=== PATIENT | male | born 1955 | race Caucasian/White ===

== ENCOUNTER 2021-08-12 10:37 | Observation (INO) | payer MEDICARE, OTHER, SELFPAY ==
[~2021-08-12] VITALS: Ht 167.6 cm; Wt 72.6 kg
[2021-08-12 10:46] VITALS: BP 137/87
--- NOTE | 2021-08-12 10:55 | NUR ---
Patient ambulated to bed 2.
--- NOTE | 2021-08-12 11:12 | NUR ---
Dr. Ordaz is evaluating patient at bedside
--- NOTE | 2021-08-12 11:26 | NUR ---
RAD at bedside
--- NOTE | 2021-08-12 11:30 | NUR ---
66 y/o M BIB self from home c/o chest pain, RUQ pain with associated N/V/D x 2 days. Patient states acute onset of chest pain at 0530 this morning. Pt states chest pain 8/10, sharp/constant, non-radiating pain. States vomiting x 2 epsiodes no blood in emesis. Pt denies taking any medications prior to arrival. Cap refill immediate. Skin warm/pink/dry. Pt placed into a gown and cardiac nurse specialist showing HR 49, SpO2 100% on room air; pulse strong/regular at the radial. Bed locked in lowest position, side rails x 1, call light in reach. PMH: HLD, HTN, DM Sx: "abdomen sugery a long time ago; unable to recall"
[2021-08-12 11:40] LABS: BASOPHILS % (AUTO) 0.4 % (0.0-2.0); EOSINOPHILS # (AUTO) 0.1 K/uL (0-0.4); EOSINOPHILS % (AUTO) 0.8 % (0.0-4.0); HEMATOCRIT 44.6 % (36-52); HEMOGLOBIN 15.1 g/dL (12.0-18.0); LYMPHOCYTES # (AUTO) 1.7 K/uL (2.0-11.5); LYMPHOCYTES % (AUTO) 22.8 % (20.5-51.1); MEAN CORPUSCULAR HEMOGLOBIN 30 pg (27-31); MEAN CORPUSCULAR HGB CONC 34 g/dL (33-37); MEAN CORPUSCULAR VOLUME 88.2 fL (80-94); MONOCYTES # (AUTO) 0.7 K/uL (0.8-1.0); MONOCYTES % (AUTO) 8.8 % (1.7-9.3); NEUTROPHILS % (AUTO) 67.2 % (42.2-75.2); PLATELET COUNT (AUTO) 148 K/uL (140-450); RED BLOOD CELL COUNT(AUTO) 5.06 MIL/uL (4.20-6.10); RED CELL DISTRIBUTION WIDTH 13.5 % (11.6-13.7); WHITE BLOOD COUNT (AUTO) 7.5 K/uL (4.8-10.8)
[2021-08-12 11:54] LABS: ANION GAP 16.5 (8-16); CREATININE 0.9 mg/dL (0.6-1.3); POTASSIUM 3.5 mmol/L (3.5-5.1)
[2021-08-12 12:04] LABS: ALBUMIN 3.6 g/dL (3.4-5.0); TOTAL BILIRUBIN 1.6 mg/dL (0.0-1.0)
[2021-08-12] MEDS ORDERED: ASPIRIN 325 MG TAB PO ONE (12:30)
--- NOTE | 2021-08-12 12:53 | NUR ---
Per Dr. Rangel, repeat troponin levels at 1900.
--- NOTE | 2021-08-12 13:08 | NUR ---
Patient ambulated to restroom with steady/even gait for bowel movement
--- NOTE | 2021-08-12 13:10 | NUR ---
RECEIVED PT FROM ER PATIENT ALERT ORIENTED X4, CALM, NO C/O PAIN AT THIS TIME, BODY ASSESSMENT DONE, NOTED BROWNISH DISCOLORATION ON BOTH EXTREMITIES, ABDOMEN SOFT NON DISTENDED, ON ROOM AIR, ORIENT TO THE ROOM, KEEP CALL LIGHT WITHIN EASY REACH, Addendum: 08/12/21 at 1736 by Reny Colunga RN PER PT HE HAS HISTORY OF ABDOMINAL SURGERY 20 YRS AGO BUT UNABLE TO SAY WHAT KIND, HISTORY OF HTN AND DM, CALL PLACE TO MD TO ASK FOR ACCUCHECK CHECK
[2021-08-12] MEDS ORDERED: ONDANSETRON 4 MG/2 ML VIAL IM/IVP PRN (14:55)
[2021-08-12] MEDS ORDERED: HYDROcodone/APAP 7.5/325 MG 1 TAB PO PRN (14:55)
[2021-08-12] MEDS ORDERED: ACETAMINOPHEN 325 MG TAB PO PRN (14:55)
[2021-08-12] MEDS ORDERED: guaiFENesin DM 200/20 MG-10 ML 10 ML UDC PO PRN (14:55)
[2021-08-12] MEDS ORDERED: POTASSIUM CHLORIDE 10 MEQ TABER PO PRN (14:55)
[2021-08-12] MEDS ORDERED: ZOLPIDEM 5 MG TAB PO PRN (14:55)
[2021-08-12] MEDS ORDERED: NITROGLYCERIN 0.4 MG TAB SL PRN (14:55)
[2021-08-12] MEDS: NACL 0.9% 1,000 ML IV SCH (14:55)
[2021-08-12] MEDS ORDERED: DOCUSATE SODIUM 100 MG GELCAP PO PRN (14:55)
--- NOTE | 2021-08-12 14:57 | NUR ---
Report given to SAPNA Castro.
--- NOTE | 2021-08-12 15:03 | NUR ---
Transport delayed d/t RT at bedside for EKG
[2021-08-12 15:17] LABS: PROTHROMBIN TIME 10.3 secs (10.8-13.4)
--- NOTE | 2021-08-12 15:25 | NUR ---
Patient will be admitted to care of Dr. Rangel. Admited to Telemetry. Will go to [id number]. Belongings list completed. Report to SAPNA Castro.
[2021-08-12 15:33] LABS: CHOL/HDL RATIO 3.1 (1-4.5); FREE T4 (FREE THYROXINE) 0.88 ng/dL (0.76-1.46); MAGNESIUM 2.2 mg/dL (1.8-2.4); PHOSPHORUS 2.7 mg/dL (2.5-4.9); THYROID STIMULATING HORMONE 3.88 uIU/mL (0.34-3.74)
[2021-08-12 15:44] VITALS: BP 163/70
--- NOTE | 2021-08-12 15:48 | NUR ---
RECEIVED REPORT FROM SUPERVISOR [employer] NURSE IN STABLE CONDITION. ALL SAFETY MEASURES IN PLACE. PT IS STABLE
[2021-08-12] MEDS: lisinopriL 10 MG TAB PO SCH (16:35)
[2021-08-12] MEDS ORDERED: ATORVASTATIN 20 MG TAB PO SCH (17:00)
--- NOTE | 2021-08-12 17:20 | NUR ---
PATIENT WENT TO THE BATHROOM, PATIENT ALERT, AWAKE ORIENTED, NO SOB NOTED.
--- NOTE | 2021-08-12 17:38 | NUR ---
RECEIVED REPORT FROM SAPNA HERNANDEZ FOR CONTINUITY OF CARE, PT IS STABLE IN BED
[2021-08-12] MEDS ORDERED: INSULIN LISPRO SLIDING SCALE 100 UNITS/ML VIAL SUBQ PRN (17:40)
[2021-08-12] MEDS ORDERED: DEXTROSE 50% 50 ML SYR IVP PRN (17:40)
--- NOTE | 2021-08-12 18:17 | NUR ---
RADIOLOGY CALLED ASKING ABOUT PTS CONTRAST. INFORMED THEM OF CONSENT BEING SIGNED AND IV LOCATION AND GAUGE. PT REPORTS NOT EATING OR DRINKING SINCE 08/11/21. ALL QUESTIONS ANSWERED. RADIOLOGY STATED THEY WILL BE IN AT [facility] 1845
--- NOTE | 2021-08-12 19:22 | NUR ---
PT HAS BEEN ENDORSED TO BRANCH SERVICE ASSOCIATE NURSE IN STABLE CONDITION, POC DISCUSSED.
--- NOTE | 2021-08-12 19:25 | NUR ---
RECEIVED REPORT FROM EFRAIN ALEJO FOR CONTINUITY OF CARE. PT SITTING UP AAOX4. NO APPARENT S/S OF ACUTE DISTRESS. BREATHING EVEN AND UNLABORED ON RA WITH O2 SAT OF 98%. NO C/O CP, SOB OR PAIN. L AC 18G INTACT/PATENT WITH NS@60ML/HR. POC AND WHITE COMMUNICATION BOARD UPDATED. BED IN LOW/LOCKED POSITION. CALL LIGHT WITHIN REACH. PT ENCOURAGED TO CALL FOR ANY NEEDS/ASSISTANCE. WILL CONTINUE TO MONITOR.
[2021-08-12 20:00] VITALS: BP 137/80
[2021-08-12] MEDS: BLOOD GLUCOSE MONITORING 1 DEV DEV FS SCH (20:22)
[2021-08-12] MEDS ORDERED: METOPROLOL 25 MG TAB PO SCH (21:00)
[2021-08-13] VITALS: BP 141/79
[2021-08-13] MEDS ORDERED: MORPHINE SULFATE 2 MG/ML SYR ONE (01:48)
--- NOTE | 2021-08-13 01:48 | NUR ---
MORPHINE ORDER INPUT IN ERROR BY OTHER RN. ORDER MEANT FOR DIFFERENT PATIENT. MORPHINE NOT GIVEN.
[2021-08-13 04:00] VITALS: BP 117/73
[2021-08-13 05:40] LABS: BARBITURATE, URINE NEGATIVE ng/ml (NEG <=200); BENZODIAZEPINE, URINE NEGATIVE ng/mL (NEG <=200); CANNABINOID, URINE NEGATIVE ng/mL (NEG <=50); COCAINE, URINE NEGATIVE ng/mL (NEG <=300); OPIATE, URINE NEGATIVE ng/mL (NEG <=2000); PHENCYCLIDINE SCREEN,URINE NEGATIVE ng/mL (NEG <=25)
[2021-08-13 05:43] LABS: APPEARANCE,URINE CLEAR (CLEAR); BILIRUBIN,URINE NEGATIVE (NEGATIVE); BLOOD, URINE TRACE-I (NEGATIVE); COLOR,URINE YELLOW (YELLOW); LEUKOCYTE ESTERASE ,URINE NEGATIVE (NEGATIVE); NITRITE, URINE NEGATIVE (NEGATIVE); PH,URINE 6.5 (5.0-9.0); UGLUCOSE NEGATIVE (NEGATIVE)
[2021-08-13 05:51] LABS: RBC,URINE 0-5 /HPF (0-5); WBC,URINE 0-5 /HPF (0-5)
[2021-08-13 06:22] LABS: BASOPHILS % (AUTO) 0.2 % (0.0-2.0); HEMATOCRIT 44.4 % (36-52); HEMOGLOBIN 15.1 g/dL (12.0-18.0); LYMPHOCYTES # (AUTO) 1.2 K/uL (2.0-11.5); LYMPHOCYTES % (AUTO) 9.5 % (20.5-51.1); MEAN CORPUSCULAR HEMOGLOBIN 30 pg (27-31); MEAN CORPUSCULAR HGB CONC 34 g/dL (33-37); MEAN CORPUSCULAR VOLUME 86.9 fL (80-94); MONOCYTES # (AUTO) 1.4 K/uL (0.8-1.0); MONOCYTES % (AUTO) 11.4 % (1.7-9.3); NEUTROPHILS # (AUTO) 9.8 K/uL (1.8-7.7); NEUTROPHILS % (AUTO) 78.9 % (42.2-75.2); PLATELET COUNT (AUTO) 146 K/uL (140-450); RED BLOOD CELL COUNT(AUTO) 5.11 MIL/uL (4.20-6.10); RED CELL DISTRIBUTION WIDTH 13.4 % (11.6-13.7); WHITE BLOOD COUNT (AUTO) 12.5 K/uL (4.8-10.8)
[2021-08-13 06:39] LABS: ANION GAP 14.2 (8-16); CARBON DIOXIDE 22.6 mmol/L (21-32); CREATININE 0.8 mg/dL (0.6-1.3); POTASSIUM 3.8 mmol/L (3.5-5.1)
--- NOTE | 2021-08-13 07:19 | NUR ---
REPORT GIVEN TO NIRAV ALEJO FOR CONTINUITY OF CARE. NO APPARENT S/S OF ACUTE DISTRESS. BREATHING EVEN AND UNLABORED. BED IN LOW/LOCKED POSITION. CALL LIGHT WITHIN REACH. ALL NEEDS MET AT THIS TIME.
--- NOTE | 2021-08-13 07:20 | NUR ---
RECEIVED REPORT FROM KICK PRESS SETTER RN FOR CONTINUITY OF CARE. PT SITTING UP AAOX4. NO APPARENT S/S OF ACUTE DISTRESS. BREATHING EVEN AND UNLABORED ON RA WITH O2 SAT OF 98%. NO C/O CP, SOB OR PAIN. L AC 18G INTACT/PATENT WITH NS@60ML/HR. POC AND WHITE COMMUNICATION BOARD UPDATED. BED IN LOW/LOCKED POSITION. CALL LIGHT WITHIN REACH. PT ENCOURAGED TO CALL FOR ANY NEEDS/ASSISTANCE.
[2021-08-13 08:00] VITALS: BP 113/63
[2021-08-13] MEDS: BLOOD GLUCOSE MONITORING 1 DEV DEV FS SCH ×2 (08:26→12:05)
[2021-08-13] MEDS: NACL 0.9% 1,000 ML IV SCH (08:26)
[2021-08-13] MEDS: lisinopriL 10 MG TAB PO SCH (08:34)
[2021-08-13] MEDS ORDERED: ECOTRIN 81 MG TABEC PO SCH (09:00)
[2021-08-13] MEDS ORDERED: lisinopriL 5 MG TAB PO SCH (09:00)
[2021-08-13] MEDS ORDERED: PANTOPRAZOLE 40 MG TABEC PO SCH (09:00)
--- NOTE | 2021-08-13 09:30 | NUR ---
PATIENT IN BED NO COMPLAINS, NO SOD NOTED, ATE BREAKFAST, MORNING MEDICATION GOT ADMINISTRATED TOLERATED WELL, ALL SAFETY MEASURES ON PLACE CALLS LIGHT WITHIN REACH
--- NOTE | 2021-08-13 09:57 | NUR ---
PATIENT HAS BEEN SCREENED AND CATEGORIZED LOW NUTRITION RISK. PATIENT WILL BE SEEN WITHIN 7 DAYS OF ADMISSION. 08/19/21 REVIEWED BY KRISTIE MG RD
[2021-08-13 10:06] LABS: T4 (THYROXINE) 5.5 ug/dL (4.5-12.0)
[2021-08-13] MEDS ORDERED: LISI-486 PO (11:11)
[2021-08-13] MEDS ORDERED: ATOR10TA PO (11:11)
[2021-08-13] MEDS ORDERED: ASPI-1822 PO (11:11)
--- NOTE | 2021-08-13 11:30 | NUR ---
PATIENT IN BED NO COMPLAINS, NO SOD NOTED, PATIENT WILL BE DISCHARGE TODAY. ALL SAFETY MEASURES ON PLACE CALLS LIGHT WITHIN REACH
[2021-08-13 12:00] VITALS: BP 116/67
--- NOTE | 2021-08-13 12:38 | NUR ---
DC PLANNING: THE PATIENT ADMITTED THROUGH THE ER WITH C/O CHEST PAIN X 1 DAY, HAS H/O HTN AND DM WITHOUT MEDICAL MANAGEMENT. ACS W/U WITH SERIAL TROPONINS AND CARDIOLOGY CONSULT, SC RULED OUT WELL CARDIAC ISCHEMIA. NO FURTHER IN PATIENT W/U NEEDED, PATIENT TO F/U ON CARDIAC STRESS TESTING AN OUTPATIENT. THE PATIENT WILL DISCHARGE TO HOME TODAY, CM WILL FOLLOW FOR NEEDS.
[2021-08-13 12:49] VITALS: BP 116/73
--- NOTE | 2021-08-13 13:10 | NUR ---
PATIENT IN BED NO COMPLAINS, NO SOD NOTED, PATIENT WILL BE DISCHARGE TODAY. ALL SAFETY MEASURES ON PLACE CALLS LIGHT WITHIN REACH
--- NOTE | 2021-08-13 15:50 | NUR ---
PATIENT IN BED NO COMPLAINS, NO SOD NOTED, PATIENT GETTING DISCHARGE PATIENT RECEIVE DISCHARGE INSTRUCTION , DR FOLLOW UP AND MEDICATION TO TAKE EDUCATION, AND DISCHARGE PACKET ID BAND REMOVED, IV REMOVED BLEEDING CONTROLLED, SKIN INTACT, PT GOT ALL BELONGINS WITH HIM WALKED TO THE FRONT LOBBY .
== END 2021-08-13 15:55 | disposition home or self-care (01) ==
LOC: MED 10:37 → MTU 12:53
PROVIDERS: ADMIT Family Medicine; ATTEND Family Medicine
DX: R07.89 Other chest pain (principal); Z20.822 Contact with and (suspected) exposure to COVID-19; R94.31 Abnormal electrocardiogram [ECG] [EKG]; R10.9 Unspecified abdominal pain; R11.2 Nausea with vomiting, unspecified; R19.7 Diarrhea, unspecified; E78.5 Hyperlipidemia, unspecified; E11.9 Type 2 diabetes mellitus without complications; I10 Essential (primary) hypertension; F17.210 Nicotine dependence, cigarettes, uncomplicated; F10.10 Alcohol abuse, uncomplicated; Z71.6 Tobacco abuse counseling; Z79.899 Other long term (current) drug therapy
CPT/HCPCS: 36415; 71045; 74177; 80048; 80053; 80061; 80305; 81001; 82150; 82948; 83036; 83690; 83735; 83880; 84100; 84439; 84443; 84484; 85025; 85610; 85730; 87081; 87426; 93307; 96360; 96361; 96372; 99285; 99406; G0378; J2270; J2405; Q0092; Q9967; 84436; 84479

== ENCOUNTER 2023-07-03 18:05 | Emergency (ER) | payer MEDICARE, OTHER ==
[~2023-07-03] VITALS: Ht 167.6 cm; Wt 61.2 kg
[~2023-07-03 18:05] MED LIST: ASPI-1822 PO; ATOR10TA PO; LISI-486 PO
[2023-07-03 18:35] VITALS: BP 184/94; PULSE 88; RESP 18; TEMP 99; O2SAT 97
[2023-07-03 19:30] LABS: FLU A ANTIGEN negative (NEGATIVE); FLU B ANTIGEN NEGATIVE (NEGATIVE)
== END 2023-07-03 21:10 | disposition left against medical advice (07) ==
LOC: MED 18:05
DX: M79.10 Myalgia, unspecified site (principal); Z20.822 Contact with and (suspected) exposure to COVID-19; Z53.21 Procedure and treatment not carried out due to patient leaving prior to being seen by health care provider
CPT/HCPCS: 99281